=== PATIENT | male | born 1965 | race Caucasian/White ===

== ENCOUNTER 2022-08-21 04:38 | Emergency (ER) | payer BC, OTHER ==
[2022-08-21 04:51] VITALS: BP 114/74; PULSE 79; RESP 18; TEMP 97.6; BMI 21.2
[2022-08-21] MEDS ORDERED: ACETAMINOPHEN 500 MG TABLET (FP) PO ONE (05:12)
[2022-08-21] MEDS ORDERED: ACETAMINOPHEN 325 MG TABLET (FP) ONE (05:31)
[2022-08-21] MEDS ORDERED: BACITRACIN ZINC 15 GM TUBE TOPICAL OINTMENT TP ONE (05:46)
[2022-08-21] MEDS ORDERED: BACITRACIN 0.9 GM PACKET ONE (05:54)
== END 2022-08-21 06:11 | disposition home or self-care (01) ==
LOC: JER 04:38
DX: T20.111A Burn of first degree of right ear [any part, except ear drum], initial encounter (principal); T20.212A Burn of second degree of left ear [any part, except ear drum], initial encounter; Y26.XXXA Exposure to smoke, fire and flames, undetermined intent, initial encounter; Y99.0 Civilian activity done for income or pay
CPT/HCPCS: 99283-25